=== PATIENT | female | born 1965 | race Two or more races ===

== ENCOUNTER 2024-10-12 11:45 | Emergency (ER) | payer OTHER ==
[~2024-10-12] VITALS: Ht 157.5 cm; Wt 93.9 kg
[2024-10-12] MEDS ORDERED: NORVASC5 MG PO (12:01)
[2024-10-12] MEDS ORDERED: COZAAR50 MG PO (12:02)
[2024-10-12] MEDS ORDERED: FAMOTIDINE/PF 20 MG/2 ML VIAL IV PUSH STA (14:20)
[2024-10-12] MEDS ORDERED: FAMOTIDINE/PF 20 MG/2 ML VIAL ONE (14:29)
[2024-10-12 15:19] LABS: HEMATOCRIT 45.3 % (36.0-45.00); HEMOGLOBIN 15.3 g/dL (12.0-15.00); MEAN CELL VOLUME 86.5 fL (80.00-100.00); MEAN CORPUSCULAR HEMOGLOBIN 29.2 pg (27.00-32.0); MEAN CORPUSCULAR HGB CONC 33.8 g/dl (32.0-36.0); PLATELET COUNT 227 K/uL (150-450); RED BLOOD COUNT 5.23 M/uL (4.00-6.00); RED CELL DISTRIBUTION WIDTH 13.9 % (11.5-14.5)
[2024-10-12 15:47] LABS: ALBUMIN 3.6 gm/dL (3.4-5.0); BILIRUBIN TOTAL 0.38 mg/dL (0.3-1.2); CALCIUM 9.3 mg/dL (8.5-10.1); CREATININE SERUM 0.81 mg/dL (0.55-1.02); GFR 72.37; GLOBULINA 3.4 G/DL (2.4-3.5); POTASSIUM 4.91 mEq/L (3.5-5.1)
== END 2024-10-12 17:37 | disposition home or self-care (01) ==
LOC: ER 11:47
DX: J45.909 Unspecified asthma, uncomplicated (principal); K21.9 Gastro-esophageal reflux disease without esophagitis; Z20.822 Contact with and (suspected) exposure to COVID-19; I10 Essential (primary) hypertension; Z88.1 Allergy status to other antibiotic agents